=== PATIENT | female | born 1945 | race Caucasian/White ===

== ENCOUNTER 2016-06-25 11:30 | Inpatient (IN) ==
--- NOTE | 2016-06-25 11:34 | Discharge Summary ---
Date of Encounter: 07/01/16 Time of Encounter: 13:49 - Discharge Diagnosis (1) Arthritis of right hip Priority: Primary Status: Acute (2) Hypertension Priority: Secondary Status: Chronic Qualifiers: Hypertension type: unspecified secondary hypertension Qualified Code(s): I15.9 - Secondary hypertension, unspecified; I15 - Secondary hypertension (3) Coronary artery disease Priority: Secondary Status: Chronic Qualifiers: Coronary Disease-Associated Artery/Lesion type: chilkat artery [place] vs. transplanted heart: chilkat heart Associated angina: without angina Qualified Code(s): I25.10 - Atherosclerotic heart disease of chilkat coronary artery without angina pectoris - Discharge Medications Home Medications: Amlodipine [Norvasc] 5 mg PO DAILY 06/25/16 [History] Ascorbate Calcium [Vitamin C] 500 mg PO DAILY 06/25/16 [History] Aspirin Enteric Coated [Aspirin EC] 325 mg PO BID #20 tablet. 06/25/16 [Rx] Bisacodyl [Dulcolax] 5 mg PO DAILY PRN 06/25/16 [History] OxyCODONE Immed Rel [Roxicodone 5 MG] 5 mg PO Q4HR PRN #30 tablet 06/25/16 [Rx] Vitamin E 1,000 unit PO DAILY 06/25/16 [History] hydroCHLOROthiazide [Hydrochlorothiazide] 25 mg PO DAILY 06/25/16 [History] Allergies/Adverse Reactions: Allergies Sulfa (Sulfonamide Antibiotics) Adverse Reaction (Verified 06/25/16 11:54) Hives Primary care physician: Marco Mendoza MD - Patient Status Disposition: Home Health Service Condition: Good Functional capacity at discharge: uses cane/walker Overall status at discharge: patient is progressing back to baseline - Discharge Instructions Follow Up With: Nii Dorman MD [Partnered Physician] - 07/22/16 3:30 pm Mary Kay Zuniga PAC [Physician Airline Lounge Receptionist] - 07/09/16 8:45 am Additional Instructions: Discharge Instructions: Total Hip Replacement Please call [facility] ([phone]), your Primary Care Physician, or report to the Emergency Room if you have any of the following symptoms: Nausea, vomiting, fever greater that 101.5, swelling, chest pain, shortness of breath, increased pain/redness/drainage/odor for your incision site, numbness/ tingling, or any other concerning symptoms. ACTIVITY:Weight-bearing as tolerated for 8 weeks with hip dislocation precautions that physical therapy taught you. You may progress as tolerated under the guidance of your physical therapist. You do not need to sleep with a pillow between your legs. You can also seep on the operative side or on your stomach. MEDICATIONS: Upon discharge resume your home medications. Take all the medications as prescribed. Take a stool softener if taking narcotic pain medications. Stool softeners are only effective if you drink enough fluids. Drink 6-8 glass of water or fluids a day, unless this is not allowed for another health problem. Despite using stool softeners, if you haven't had a bowel movement in 3 days, please switch to a gentle laxative. Gentle laxatives are sold over the counter. You should have a bowel movement within 24 hours, if not call the office. You will be discharged from the hospital with a prescription for pain medication. You are encouraged to decrease the use of narcotic pain medication as tolerated. Should you require a refill, please call the office. [facility] prescribes narcotic pain medication for only 4-6 weeks after surgery. If you require pain medication beyond this time period, you may be referred to your Primary Care Physician or to the Pain Clinic for further evaluation. Plan ahead for refills on pain medication as many narcotics either need to be picked up at the office or mailed. It is best to call 48-72 hours in advance of needing a prescription refill so you don't run out of medication. To help control the post-operative pain, you may take NSAIDs (Aleve,Advil, Motrin, ibuprofen, naprosyn) or Tylenol as prescribed on the bottle in addition to the pain medication. ANTICOAGULATION (blood thinners): Continue your Aspirin, Lovenox or Coumadin as prescribed to help prevent a blood clot in the leg or in the lungs. As long as your incision remains dry and you tolerate the NSAIDs (Aleve, Advil, Motrin, Ibuprofen, Naprosyn), it is OK to use the NSAIDS while you are taking your anticoagulation medication. Should your incision start to drain, stop the NSAID and contact our office. Common symptoms of blood clot in the legs include: localized pain, swelling, calf tenderness, redness or discoloration of the skin. Blood clot in the lung symptoms include: shortness of breath, rapid pulse, sweating, and chest pain that worsens with deep breathing, coughing up blood, lightheadedness, feelings of anxiety. If you experience any of these symptoms notify your physician immediately, go to the emergency room, or if having trouble breathing, call 911. WOUND CARE: Leave the dressing on for 7 to 10days. You may change the dressing if it is saturated greater than 50%. Do not get the dressing wet at anytime. Wash your hands with antibacterial soap, rinse and dry prior to any wound care. If you have razia the visiting nurse or rehab facility can remove the stapes 10-14 days after surgery [address] steri-strips across the wound. Leave the steri-strips in place until they fall off on their own. You may let water from the shower run on top of the steri-strips. If you do not have a visiting nurse or rehab facility, you will need to return to the office at 10-14 days for the razia to be removed. If you have itching or redness around the dressing call the office. FOLLOW-UP: Please follow up with your surgeon in the orthopedic clinic in 6 weeks from the day of surgery. If you have razia that need to be removed, you will need to come back to the office in 10-14 days from the day of surgery. - Hospital Course Hospital course: Ms. Rosas is a 70 year old female The patient had an uneventful postoperative course. They received antibiotics and physical therapy and were discharged in stable condition. There will follow -up in the office in 2 weeks. Aspirin DVT prophylaxis - Time Spent with Patient Total time spent providing and/or coordinating discharge services:
--- NOTE | 2016-06-25 12:00 | History & Physical Report ---
Date of Encounter: 06/25/16 Time of Encounter: 11:59 24 Hour HP Update - Instructions Instructions: If the History and Physical is less than 30 days old and was completed prior to A.M. admission and or procedure and has NOT been updated on calendar day of procedure please complete this update prior to performing procedure. - Update Patient reports changes in Medical Condition: No Changes in examination, assessment, or condition: No Changes in Medication: No Preop tests/diagnostics Reviewed: Yes Surgery Remains Indicated: Yes Consent for Planned Operative Procedure(s) Verified: Yes - Pre-Operative Checklist Preoperative Checklist Indicated: No Prophylactic Antibiotic Ordered: Yes Is VTE Prophylaxis Indicated?: Yes
--- NOTE | 2016-06-25 12:09 | Anesthesia Evaluation PreOp ---
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 06/25/16 [Rx] Aspirin [Ecotrin] 325 mg PO DAILY 06/25/16 [History] Bisacodyl [Dulcolax] 5 mg PO DAILY PRN 06/25/16 [History] Hydrochlorothiazide 25 mg PO DAILY 06/25/16 [History] OxyCODONE Immed Rel [Roxicodone 5 MG] 5 mg PO Q4HR PRN #30 tablet 06/25/16 [Rx] Vitamin E 1,000 unit PO DAILY 06/25/16 [History] Allergies Sulfa (Sulfonamide Antibiotics) Adverse Reaction (Verified 06/25/16 11:54) Hives - Meds/Allergy Pre-op Review Medications Reviewed: Yes Allergies Reviewed: Yes Beta Blockers on Current Med List: No Anesthesia Results - Labs Laboratory Tests 06/04/16 06/04/16 06/04/16 14:56 14:56 14:56 WBC 9.1 Hgb 14.3 Hct 44.9 Plt Count 362 PT 10.8 INR 1.0 APTT 31.9 Sodium 141 Potassium 3.4 L BUN 25 H Creatinine 1.45 H - Imaging EKG: report reviewed (06/04/2016 SR, occasional PVC's, low QRS in precordial leads, poor R wave progression) Anesthesia Exam O2 Sat Height 1.63 m Height 1.63 m Weight 81.647 kg Weight 81.647 kg O2 Sat by Pulse Oximetry 97 Vital Signs Temp Pulse Resp BP Pulse Ox 97.6 F 65 18 147/84 97 06/25/16 11:56 06/25/16 11:56 06/25/16 11:56 06/25/16 11:56 06/25/16 11:56 Height: 5'4'' Weight: 180 lbs NPO (# of Hours): 8 Pain Scale: 2 (hips) Pain Scale Used: Numeric (1 - 10) - HEENT Pupil (Motor): EOMI Mallampati: II Teeth: Normal Oral Opening: Greater than 3 - PROSTHETICS TECHNICIAN LOC: Oriented PROSTHETICS TECHNICIAN Motor: Normal RUE, Normal LUE, Normal RLE, Normal LLE, Normal Face PROSTHETICS TECHNICIAN Sensory: Normal: RUE, LUE, RLE, LLE, Face - Cardiac Rhythm: Regular Murmur: None - Pulmonary Breath Sounds: bilateral Clear Respiratory Effort: Symmetrical Anesthesia Assess/Plan ASA Score: 3 Modified Mehran Scale for Level of Consciousness: Cooperative, oriented, and tranquil Anesthetic Plan: General Monitoring Plan: Standard Monitors Recovery Plan: PACU
[2016-06-25] MEDS ORDERED: *HR* Midazolam HCl 2 MG/2 ML VIAL ONE (12:13)
[2016-06-25] MEDS ORDERED: *HR* FentaNYL (PF) 100 MCG/2 ML VIAL ONE (12:13)
[2016-06-25] MEDS ORDERED: Lidocaine -MPF 2% 2 ML VIAL ONE (12:14)
[2016-06-25] MEDS ORDERED: *HR* Succinylcholine 200 MG/10 ML VIAL IVP ONE (12:15)
[2016-06-25] MEDS ORDERED: *HR* Propofol 200 MG/20 ML VIAL IVP ONE (12:16)
[2016-06-25] MEDS ORDERED: Lidocaine -MPF 4% 5 ML AMPUL ONE (12:17)
[2016-06-25] MEDS ORDERED: CeFAZolin Pre 2,000 MG/100 ML 2,000 MG/100 ML BAG IVPB ONE (12:24)
[2016-06-25] MEDS ORDERED: Ringers Solution, Lactated 1,000 ML IVC SCH ×2 (12:30→15:48)
[2016-06-25] MEDS ORDERED: Ketamine *HR* 500 MG/10 ML MDV ONE (13:02)
[2016-06-25] MEDS ORDERED: Dexamethasone 4 MG/ML VIAL ONE (13:12)
[2016-06-25] MEDS ORDERED: *HR* Magnesium Sulfate 1 GM/2 ML VIAL ONE (13:12)
[2016-06-25] MEDS ORDERED: Ondansetron 4 MG/2 ML VIAL ONE (13:12)
[2016-06-25] MEDS ORDERED: Acetaminophen IV 1,000 MG/100 ML INFUS..BTL ONE (13:17)
--- NOTE | 2016-06-25 13:31 | Anesthesia Procedures ---
Date of Encounter: 06/25/16 Time of Encounter: 14:50 Procedures: Anesthesia - Nerve Block Procedure Date: 06/25/16 Time: 14:50 Allergies/Adv Reactions: sulfa Pre-op Diagnosis: right hip OA Surgical Procedure: right MILDRED Checklist: Correct Patient Identifier, Correct procedure, History checked Correct side: Right Blood Thinner: No Monitor Applied: EKG, BP, Pulse Oximetry Supplemental Oxygen via Nasal Cannula (L/min): 2 Sedation: Versed (mg): 1 Sedation: Fentanyl (mcg): 50 Indication: Post Op Analgesia Pre-op Neuro Deficits: No Block Type: Other (Fascia Iliaca) Catheter placed: No Sterile Technique: Yes Ultrasound used: Yes Anatomy identified: Yes Visual spread of Local: Yes Neuro Stimulation: No Blood on Needle Aspiration: No Smooth Injection of Local: Yes Pain with Injection of Local: No Prep: Chlorhexadine Needle: 21 x 100 mm Stimuplex (echogenic) Local: Other (0.25% bupivacaine) Volume (cc): 60 Number of Attempts: 1 Complications: None/effective block Vitals: Vital Signs/O2 Sat/Glucose, Most Recent Temp Pulse Resp BP Pulse Ox 97.6 F 65 18 175/96 99 06/25/16 11:56 06/25/16 12:55 06/25/16 11:56 06/25/16 12:55 06/25/16 12:55
[2016-06-25] MEDS ORDERED: Ondansetron 4 MG/2 ML VIAL IVP PRN ×2 (13:32→15:48)
[2016-06-25] MEDS ORDERED: *HR* HYDROmorphone 2 MG/ML SYRINGE ONE (13:44)
--- NOTE | 2016-06-25 13:50 | Orthopedic Operative Note ---
Date of procedure: 06/25/16 Pre-op diagnosis: Right hip arthritis Post-op diagnosis: same Procedure: Procedure: Right Total Hip Replacment Estimated blood loss: 300 cc Hardware: Biomet DM Cup: 50 G7 fin cup Femoral size 9 echo full profile lateralized stem Head: +0 head with Greta Procedural Notes: Grade 4 arthritic changes femoral head acetabular socket. Operative procedure: The patient was brought to the operating room and placed on the operating room table. After general anesthesia was administered the patient was placed in the lateral decubitus position with the operative leg up. All pressure points were padded appropriately and the head was stabilized in the neutral position. The operative extremity was prepped and draped in the sterile surgical fashion patient received IV antibiotic prior to skin incision. A standard posterior approach is made to the operative hip, the incision was made through the skin and subcutaneous tissue hemostasis was obtained with Bovie cautery. Using careful sharp dissection the fascia was identified and incised exposing the external rotators. The external rotators were released off the greater trochanter and tagged with #2 FiberWire suture. The capsule was T'd open and the hip was brought into internal rotation. Patient noted to have grade 4 arthritic changes femoral head. The femoral neck cut was made at the appropriate level. An anterior capsulotomy was performed for the anterior retractor. Soft tissues removed from the acetabulum. Patient noted to have grade 4 arthritic changes acetabulum. Acetabulum was first reamed medially, and then reamed in 15 degrees of anteversion and 45 degrees off the horizontal. It was reamed up to the appropriate size 50 The appropriate-sized 50 acetabular cup was impacted in place in 15 degrees of anteversion and 45 degrees off the horizontal. This had good fit and fixation. The hip was brought back in to internal rotation and prepared with the supervisor transferring and boxing followed by the canal finder followed by broaching process in 20 degrees anteversion. It was broached up to the appropriate size 9 The femoral implant was impacted in place in 20 degrees of anteversion. Trial reduction found the hip to be stable with a +0 head and Greta. The trials were removed and the real implants were impacted in place. The hip was reduced, patient had apparent equal leg lengths. The hip had excellent stability with forward flexion to 90 degrees adduction of 30 degrees and internal rotation of 60 degrees. The hip had no shuck. The hips after 2 minutes with a Betadine saline solution. It was irrigated out with 2 L of pulse irrigation. The external rotators were reattached to drill holes in the greater trochanter. Fascia was closed with a running #2 PDS suture. The deep tissue was irrigated and closed deep with #1 PDS suture superficially with 0 PDS suture and skin was closed with skin razia. The patient was placed in a sterile dressing and abduction pillow. The patient was extubated and transferred to the recovery room in stable condition. Anesthesia: KAYLA Surgeon: Nii Dorman Spectacle Truer: Grace Mckeon Condition: stable Disposition: PACU
[2016-06-25] MEDS ORDERED: Ketorolac 30 MG/ML VIAL ONE (13:56)
[2016-06-25] MEDS: *HR* HYDROmorphone (PF) 1 MG/ML SYRINGE IVP PRN ×3 (14:55→15:20)
[2016-06-25 15:04] LABS: Hematocrit 40.4 % (35.3-44.9); Hemoglobin 13.1 g/dL (11.5-15.4)
[2016-06-25] MEDS ORDERED: Sennosides 8.6 MG TABLET PO PRN (15:48)
[2016-06-25] MEDS ORDERED: Temazepam 15 MG CAPSULE PO PRN (15:48)
[2016-06-25] MEDS ORDERED: Naloxone 0.4 MG/ML INJ IVP PRN (15:48)
[2016-06-25] MEDS ORDERED: *HR* OxyCODONE Immed Rel 5 MG TABLET PO PRN (15:48)
[2016-06-25] MEDS ORDERED: *HR* HYDROmorphone (PF) 1 MG/ML SYRINGE IVP PRN (15:48)
[2016-06-25] MEDS ORDERED: Ascorbic Acid 500 MG TABLET PO SCH (17:00)
[2016-06-25] MEDS: *HR* Enoxaparin 30 MG/0.3 ML SYRINGE SQ SCH (17:36)
[2016-06-25] MEDS ORDERED: *HR* Enoxaparin 30 MG/0.3 ML SYRINGE SQ SCH (18:00)
[2016-06-25] MEDS: *HR* OxyCODONE Immed Rel 5 MG TABLET PO PRN (18:42)
[2016-06-25] MEDS ORDERED: ceFAZolin 2,000 MG in D5% in Water 100 ML IVPB SCH (20:00)
[2016-06-26] MEDS ORDERED: ceFAZolin 2,000 MG in D5% in Water 100 ML IVPB SCH (04:00)
[2016-06-26 04:09] LABS: Hematocrit 35.5 % (35.3-44.9); Hemoglobin 11.9 g/dL (11.5-15.4)
[2016-06-26 04:31] LABS: Calcium 8.7 mg/dL (8.6-10.8); Potassium 3.6 mEq/L (3.5-4.5)
[2016-06-26] MEDS: *HR* Enoxaparin 30 MG/0.3 ML SYRINGE SQ SCH ×2 (06:28→17:50)
--- NOTE | 2016-06-26 06:42 | Orthopedics Progress Note ---
Date of Encounter: 06/26/16 Time of Encounter: 06:41 - Assessment and Plan (1) Arthritis of right hip Current Visit: Yes Status: Acute (2) Hypertension Current Visit: Yes Status: Chronic Qualifiers: Hypertension type: unspecified secondary hypertension Qualified Code(s): I15.9 - Secondary hypertension, unspecified; I15 - Secondary hypertension (3) Coronary artery disease Current Visit: Yes Status: Chronic Qualifiers: Coronary Disease-Associated Artery/Lesion type: [place] artery [place] vs. transplanted heart: [place] heart Associated angina: without angina Qualified Code(s): I25.10 - Atherosclerotic heart disease of [place] coronary artery without angina pectoris Subjective Interval history: Patient was seen this morning doing well without complaints. Afebrile vital signs stable. Operative extremity: Concern for right foot drop, sensation intact. will fit with AFO until motor returns. Dressing clean dry and intact Calves nontender Assessment and plan: Continue with postoperative care Hematocrit 38 Objective Vital signs: Vital Signs Temp Pulse Resp BP Pulse Ox 06/26/16 06:32 97.9 F 54 16 115/67 95 06/26/16 04:32 98.0 F 59 16 128/79 95 06/26/16 01:48 98.0 F 68 16 99/65 95 06/25/16 18:45 97.7 F 69 13 115/62 99 06/25/16 17:39 97.6 F 55 10 98/59 99 06/25/16 16:40 98.2 F 85 16 93/60 96 06/25/16 16:28 63 13 95/57 93 06/25/16 16:08 97.6 F 63 13 95/57 93 06/25/16 15:48 97.6 F 56 12 102/64 93 06/25/16 15:25 63 16 101/59 94 06/25/16 15:15 97.5 F L 70 16 114/66 94 06/25/16 15:05 67 16 117/66 93 06/25/16 14:55 65 16 112/67 95 06/25/16 14:45 98.0 F 66 16 116/66 96 06/25/16 14:35 66 16 119/67 96 06/25/16 14:25 72 16 110/75 95 06/25/16 14:15 97.8 F 73 16 106/67 94 06/25/16 12:55 65 175/96 99 05/04/17 11:56 97.6 F 65 18 147/84 97 Intake and Output 06/25/16 06/25/16 06/26/16 15:59 23:59 07:59 Intake Total 100 / 100 Output Total 300 / 300 Balance -200 / -200 Intake: IV Fluids 100 / 100 Ancef Premix 2,000 MG/100 100 / 100 ML 2,000 mg In 100 ml @ 200 mls/hr IVPB PREOP ONE Rx#:[id number] Output: Estimated Blood Loss 300 / 300 Other: # Voids 1 Weight 81.647 kg - Labs CBC & BMP: 06/26/16 03:57 06/26/16 03:57 Labs: Abnormal lab results BUN 21 mg/dL (7-20) H 06/26/16 03:57 Creatinine 1.23 mg/dL (0.57-1.11) H 06/26/16 03:57 Est GFR ( Amer) 52 (> 60) L 06/26/16 03:57 Est GFR (Non-Af Amer) 43 (> 60) L 06/26/16 03:57 Glucose 138 mg/dL (70-99) H 06/26/16 03:57 - VTE Documentation of Mechanical Device: Venous foot pump, device Consult Discharge Plan - Plan Referrals: Marco Mendoza MD [Primary Care Provider] -
[2016-06-26] MEDS: Ascorbic Acid 500 MG TABLET PO SCH (09:04)
[2016-06-26] MEDS: amLODIPine 5 MG TABLET PO SCH (09:04)
[2016-06-26] MEDS: Multivit/Ca/Min/Fe/FA 1 TAB TABLET PO SCH (09:05)
[2016-06-26] MEDS: hydroCHLOROthiazide 25 MG TABLET PO SCH (09:05)
[2016-06-26] MEDS: *HR* OxyCODONE Immed Rel 5 MG TABLET PO PRN ×2 (09:11→20:48)
--- NOTE | 2016-06-26 14:34 | Event Note ---
Date of Encounter: 06/26/16 Time of Encounter: 11:30 AFO brace applied by bracing specialist
[2016-06-27 05:32] LABS: Hematocrit 28.3 % (35.3-44.9)
[2016-06-27 05:44] LABS: Hemoglobin 9.5 g/dL (11.5-15.4)
[2016-06-27 05:45] LABS: Calcium 8.1 mg/dL (8.6-10.8); Potassium 3.2 mEq/L (3.5-4.5)
[2016-06-27] MEDS: *HR* Enoxaparin 30 MG/0.3 ML SYRINGE SQ SCH ×2 (05:46→17:18)
[2016-06-27] MEDS: *HR* OxyCODONE Immed Rel 5 MG TABLET PO PRN ×3 (06:35→20:14)
[2016-06-27] MEDS: MOM Conc 10 ML UD.LIQ PO PRN (06:41)
[2016-06-27] MEDS: Multivit/Ca/Min/Fe/FA 1 TAB TABLET PO SCH (09:30)
[2016-06-27] MEDS: amLODIPine 5 MG TABLET PO SCH (09:30)
[2016-06-27] MEDS: hydroCHLOROthiazide 25 MG TABLET PO SCH (09:30)
[2016-06-27] MEDS: Ascorbic Acid 500 MG TABLET PO SCH (09:31)
--- NOTE | 2016-06-27 10:32 | Orthopedics Progress Note ---
Date of Encounter: 06/27/16 Time of Encounter: 10:30 Subjective Interval history: S: No complaints. Pain well controlled. O: Afeb, VSS Right thigh dressing is clean, dry, intact Calf soft. Flexes ankle and toes; Foot drop. Sensation fully intact. 2+ DP pulse A: Post op right total hip arthroplasty; foot drop. P: Resume post op care AFO to right lower extremity. Objective Vital signs: Vital Signs Temp Pulse Resp BP Pulse Ox 06/27/16 09:28 60 100/65 06/27/16 07:18 98.8 F 64 18 113/68 91 06/27/16 04:02 98.7 F 68 18 120/67 92 06/27/16 00:09 98.6 F 67 16 127/70 93 06/26/16 20:13 97.9 F 62 15 112/58 93 06/26/16 14:47 98.9 F 70 16 130/80 95 06/26/16 11:16 97.9 F 70 16 117/73 95 Intake and Output 06/26/16 06/27/16 06/27/16 23:59 07:59 15:59 Intake Total 0 / 0 360 / 360 Output Total 0 / 0 Balance 0 / 0 360 / 360 Intake: Oral 0 / 0 360 / 360 Output: Urine 0 / 0 Other: Meal Breakfast Percent of Meal Consumed 75% # Voids 1 1 - Labs CBC & BMP: 06/27/16 04:43 06/27/16 04:43 Labs: Abnormal lab results Hgb 9.5 g/dL (11.5-15.4) L D 06/27/16 04:43 Hct 28.3 % (35.3-44.9) L 06/27/16 04:43 Potassium 3.2 mEq/L (3.5-4.5) L 06/27/16 04:43 BUN 24 mg/dL (7-20) H 06/27/16 04:43 Creatinine 1.45 mg/dL (0.57-1.11) H 06/27/16 04:43 Est GFR ( Amer) 43 (> 60) L 06/27/16 04:43 Est GFR (Non-Af Amer) 36 (> 60) L 06/27/16 04:43 Glucose 113 mg/dL (70-99) H 06/27/16 04:43 Calcium 8.1 mg/dL (8.6-10.8) L 06/27/16 04:43 - VTE Documentation of Mechanical Device: Venous foot pump, device Consult Discharge Plan - Plan Referrals: Marco Mendoza MD [Primary Care Provider] -
[2016-06-28] MEDS: *HR* OxyCODONE Immed Rel 5 MG TABLET PO PRN ×3 (03:16→13:52)
[2016-06-28] MEDS: *HR* Enoxaparin 30 MG/0.3 ML SYRINGE SQ SCH (05:39)
[2016-06-28] MEDS: amLODIPine 5 MG TABLET PO SCH (09:13)
[2016-06-28] MEDS: hydroCHLOROthiazide 25 MG TABLET PO SCH (09:13)
[2016-06-28] MEDS: Ascorbic Acid 500 MG TABLET PO SCH (09:13)
[2016-06-28] MEDS: Multivit/Ca/Min/Fe/FA 1 TAB TABLET PO SCH (09:13)
[2016-06-28] MEDS: MOM Conc 10 ML UD.LIQ PO PRN (10:46)
--- NOTE | 2016-06-28 10:58 | Orthopedics Progress Note ---
Date of Encounter: 06/28/16 Time of Encounter: 10:57 Subjective Interval history: S: No complaints. Pain well controlled. O: Afeb, VSS Right thigh dressing is clean, dry, intact Calf soft. Flexes ankle and toes; Foot drop. Sensation fully intact. 2+ DP pulse A: Post op right total hip arthroplasty; foot drop. P: Resume post op care AFO to right lower extremity. Objective Vital signs: Vital Signs Temp Pulse Resp BP Pulse Ox 06/28/16 07:57 99.1 F 82 18 118/76 93 06/28/16 03:18 98.7 F 77 18 132/87 92 06/28/16 00:01 98.8 F 87 18 114/70 91 06/27/16 21:23 98.2 F 81 16 115/69 99 06/27/16 15:48 99.3 F 67 20 131/69 99 06/27/16 12:20 98.3 F 67 18 109/69 96 Intake and Output 06/27/16 06/28/16 06/28/16 23:59 07:59 15:59 Intake Total 450 / 450 625 / 625 Output Total 650 / 650 300 / 300 Balance -200 / -200 325 / 325 Intake: Oral 450 / 450 625 / 625 Output: Urine 650 / 650 300 / 300 Other: # Voids 1 - Labs CBC & BMP: 06/27/16 04:43 06/27/16 04:43 Labs: Abnormal lab results Hgb 9.5 g/dL (11.5-15.4) L D 06/27/16 04:43 Hct 28.3 % (35.3-44.9) L 06/27/16 04:43 Potassium 3.2 mEq/L (3.5-4.5) L 06/27/16 04:43 BUN 24 mg/dL (7-20) H 06/27/16 04:43 Creatinine 1.45 mg/dL (0.57-1.11) H 06/27/16 04:43 Est GFR ( Amer) 43 (> 60) L 06/27/16 04:43 Est GFR (Non-Af Amer) 36 (> 60) L 06/27/16 04:43 Glucose 113 mg/dL (70-99) H 06/27/16 04:43 Calcium 8.1 mg/dL (8.6-10.8) L 06/27/16 04:43 - VTE Documentation of Mechanical Device: Venous foot pump, device Consult Discharge Plan - Plan Additional Instructions: Discharge Instructions: Total Hip Replacement Please call [facility] ([phone]), your Primary Care Physician, or report to the Emergency Room if you have any of the following symptoms: Nausea, vomiting, fever greater that 101.5, swelling, chest pain, shortness of breath, increased pain/redness/drainage/odor for your incision site, numbness/ tingling, or any other concerning symptoms. ACTIVITY:Weight-bearing as tolerated for 8 weeks with hip dislocation precautions that physical therapy taught you. You may progress as tolerated under the guidance of your physical therapist. You do not need to sleep with a pillow between your legs. You can also seep on the operative side or on your stomach. MEDICATIONS: Upon discharge resume your home medications. Take all the medications as prescribed. Take a stool softener if taking narcotic pain medications. Stool softeners are only effective if you drink enough fluids. Drink 6-8 glass of water or fluids a day, unless this is not allowed for another health problem. Despite using stool softeners, if you haven't had a bowel movement in 3 days, please switch to a gentle laxative. Gentle laxatives are sold over the counter. You should have a bowel movement within 24 hours, if not call the office. You will be discharged from the hospital with a prescription for pain medication. You are encouraged to decrease the use of narcotic pain medication as tolerated. Should you require a refill, please call the office. [facility] prescribes narcotic pain medication for only 4-6 weeks after surgery. If you require pain medication beyond this time period, you may be referred to your Primary Care Physician or to the Pain Clinic for further evaluation. Plan ahead for refills on pain medication as many narcotics either need to be picked up at the office or mailed. It is best to call 48-72 hours in advance of needing a prescription refill so you don't run out of medication. To help control the post-operative pain, you may take NSAIDs (Aleve,Advil, Motrin, ibuprofen, naprosyn) or Tylenol as prescribed on the bottle in addition to the pain medication. ANTICOAGULATION (blood thinners): Continue your Aspirin, Lovenox or Coumadin as prescribed to help prevent a blood clot in the leg or in the lungs. As long as your incision remains dry and you tolerate the NSAIDs (Aleve, Advil, Motrin, Ibuprofen, Naprosyn), it is OK to use the NSAIDS while you are taking your anticoagulation medication. Should your incision start to drain, stop the NSAID and contact our office. Common symptoms of blood clot in the legs include: localized pain, swelling, calf tenderness, redness or discoloration of the skin. Blood clot in the lung symptoms include: shortness of breath, rapid pulse, sweating, and chest pain that worsens with deep breathing, coughing up blood, lightheadedness, feelings of anxiety. If you experience any of these symptoms notify your physician immediately, go to the emergency room, or if having trouble breathing, call 911. WOUND CARE: Leave the dressing on for 7 to 10days. You may change the dressing if it is saturated greater than 50%. Do not get the dressing wet at anytime. Wash your hands with antibacterial soap, rinse and dry prior to any wound care. If you have razia the visiting nurse or rehab facility can remove the stapes 10-14 days after surgery and place steri-strips across the wound. Leave the steri-strips in place until they fall off on their own. You may let water from the shower run on top of the steri-strips. If you do not have a visiting nurse or rehab facility, you will need to return to the office at 10-14 days for the razia to be removed. If you have itching or redness around the dressing call the office. FOLLOW-UP: Please follow up with your surgeon in the orthopedic clinic in 6 weeks from the day of surgery. If you have razia that need to be removed, you will need to come back to the office in 10-14 days from the day of surgery. Referrals: Nii Dorman MD [Partnered Physician] - 07/22/16 3:30 pm Mary Kay Zuniga PAC [Physician Tankage Grinder Operator] - 07/09/16 8:45 am
[2016-06-28 11:09] VITALS: BP 113/69
== END 2016-06-28 14:45 | disposition home health service (06) | DRG 470 ==
LOC: SAMDAY 11:30 → EDUNIT# 15:00 → 3NENU 16:10
PROVIDERS: ADMIT Orthopaedic Surgery; ATTEND Orthopaedic Surgery

== ENCOUNTER 2016-08-05 12:28 | Observation (INO) ==
[2016-08-05 12:57] LABS: Basophils % 0.4 %; Eosinophils # 0.2 K/mcL (0.0-0.6); Eosinophils % 2.2 %; Hematocrit 39.1 % (35.3-44.9); Hemoglobin 12.6 g/dL (11.5-15.4); Immature Granulocytes % 0.2 % (0-4); Lymphocytes % 24.8 %; Mean Corpuscular HGB Conc 32.2 g/dL (31.6-35.5); Mean Corpuscular Hemoglobin 31.3 pg (28.0-33.3); Mean Corpuscular Volume 97.3 fL (83.0-100.0); Mean Platelet Volume 8.6 fL (9.4-12.4); Monocytes # 0.5 K/mcL (0.0-1.3); Monocytes % 6.6 %; Neutrophils # 5.3 K/mcL (1.6-8.9); Platelet Count 485 K/mcL (140-400); Red Blood Count 4.02 M/mcL (3.82-4.97); Red Cell Distribution Width 13.4 % (11.5-14.5); Segmented Neutrophils % 65.8 %
--- NOTE | 2016-08-05 13:21 | History & Physical Report ---
Date of Encounter: 08/05/16 Time of Encounter: 13:20 24 Hour HP Update - Instructions Instructions: If the History and Physical is less than 30 days old and was completed prior to A.M. admission and or procedure and has NOT been updated on calendar day of procedure please complete this update prior to performing procedure. - Update Patient reports changes in Medical Condition: No Changes in examination, assessment, or condition: No Changes in Medication: No Preop tests/diagnostics Reviewed: Yes Surgery Remains Indicated: Yes Consent for Planned Operative Procedure(s) Verified: Yes - Pre-Operative Checklist Preoperative Checklist Indicated: No Prophylactic Antibiotic Ordered: Yes Is VTE Prophylaxis Indicated?: NO
--- NOTE | 2016-08-05 13:23 | Discharge Summary ---
Outpatient Proc Discharge Plan - Plan Additional Instructions: Weightbearing as tolerated total hip precautions do not remove dressing Prescriptions: Doxycycline 100 mg PO BID #30 capsule HYDROcodone/Acet 5/325 mg [[place] 5-325 mg] 1 - 2 tab PO Q6H PRN #30 tab PRN Reason: Pain Levofloxacin [Levaquin] 750 mg PO QAM #20 tablet Home Medications: amLODIPine [Norvasc] 5 mg PO DAILY 06/25/16 [History] Doxycycline 100 mg PO BID #30 capsule 08/05/16 [Rx] HYDROcodone/Acet 5/325 mg [[place] 5-325 mg] 1 - 2 tab PO Q6H PRN #30 tab [Rx] Levofloxacin [Levaquin] 750 mg PO QAM #20 tablet 08/05/16 [Rx]
[2016-08-05 13:26] LABS: INR 1.1; Prothrombin Time 11.7 Seconds (9.4-12.1)
[2016-08-05] MEDS ORDERED: *HR* HYDROcodone/Acet 5/325 mg TABLET PO ONE (13:26)
[2016-08-05 13:29] LABS: Activated Partial Thrombo Time 31.3 Seconds (26.0-36.0)
[2016-08-05] MEDS ORDERED: *HR* Propofol 200 MG/20 ML VIAL IVP ONE ×2 (13:33→15:24)
[2016-08-05] MEDS ORDERED: Ringers Solution, Lactated 1,000 ML IVC SCH ×2 (13:45→18:13)
--- NOTE | 2016-08-05 13:47 | Anesthesia Evaluation PreOp ---
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 06/25/16 [Rx] amLODIPine [Norvasc] 5 mg PO DAILY 06/25/16 [History] Doxycycline 100 mg PO BID 08/05/16 [History] Allergies Oxycodone Allergy (Verified 08/05/16 13:22) Hives Sulfa (Sulfonamide Antibiotics) Allergy (Verified 08/05/16 13:22) Hives - Meds/Allergy Pre-op Review Medications Reviewed: Yes Allergies Reviewed: Yes Beta Blockers on Current Med List: No Anesthesia Results - Labs 08/05/16 12:45 - Imaging EKG: report reviewed (sr) Anesthesia Exam O2 Sat Height 1.63 m Height 1.63 m Weight 85.729 kg Weight 85.729 kg O2 Sat by Pulse Oximetry 98 Vital Signs Temp Pulse Resp BP Pulse Ox 99.5 F 82 18 138/89 98 08/05/16 12:46 08/05/16 12:46 08/05/16 12:46 08/05/16 12:46 08/05/16 12:46 Height: 1.63 Weight: 85 NPO (# of Hours): >8 - HEENT Pupil (Motor): Pupils equal, EOMI Mallampati: I Teeth: Normal Oral Opening: Greater than 3 - [employer] LOC: Oriented [employer] Motor: Normal RUE, Normal LUE, Normal RLE, Normal LLE, Normal Face [employer] Sensory: Normal: RUE, LUE, RLE, LLE, Face - Cardiac Rhythm: Regular Murmur: None - Pulmonary Breath Sounds: bilateral Clear Respiratory Effort: Symmetrical Anesthesia Assess/Plan ASA Score: 3 Modified [place] Scale for Level of Consciousness: Cooperative, oriented, and tranquil Anesthetic Plan: General Monitoring Plan: Standard Monitors Recovery Plan: PACU
[2016-08-05] MEDS ORDERED: Vancomycin 1,250 MG in D5% in Water 250 ML IVPB ONE (14:01)
[2016-08-05] MEDS ORDERED: Vancomycin 1,500 MG in D5% in Water 250 ML IVPB ONE (15:00)
[2016-08-05] MEDS ORDERED: *HR* FentaNYL (PF) 100 MCG/2 ML VIAL ONE (15:08)
[2016-08-05] MEDS ORDERED: Ondansetron 4 MG/2 ML VIAL ONE (15:19)
[2016-08-05] MEDS ORDERED: *HR* Succinylcholine 200 MG/10 ML VIAL IVP ONE (15:23)
[2016-08-05] MEDS ORDERED: Ketorolac 30 MG/ML VIAL ONE (15:25)
[2016-08-05] MEDS ORDERED: *HR* HYDROmorphone 2 MG/ML SYRINGE ONE (15:25)
[2016-08-05] MEDS ORDERED: Ondansetron 4 MG/2 ML VIAL IVP PRN ×2 (15:30→18:13)
--- NOTE | 2016-08-05 15:45 | Orthopedic Operative Note ---
Date of procedure: 08/05/16 Pre-op diagnosis: Wound dehiscence right hip Post-op diagnosis: same Procedure: Procedure: Irrigation and debridement right hip exchange of femoral neck and articulating Greta. Estimated blood loss 200 mL: Hardware 40 bearing Greta, 28 standard metal head-Biomet Procedure: Patient brought to the operating placed on the operating table after general anesthesia was administered. Placed left side down right side up lateral decubitus position all pressure points were padded appropriately the hip was stable in neutral position patient 2 small areas of opening where serous fluid was draining out. The right lower extremity was prepped and draped in sterile surgical fashion patient by interlocks was consistent. An elliptical incision was made around the entire incision. The skin subcutaneous tissue hemostasis to him with Bovie cautery. Patient noticed to have what appeared to be fatty necrosis.The patient had extensive debridement of abnormal fatty tissue. Patient had apparent defect in her fascia. This make it all the way down to the joint. Cultures were obtained as well as Gram stain. The hip was dislocated the removable Greta articulating surface and femoral head were removed. The hips have tumors with Betadine saline solution. We then irrigated out pulse irrigation and extensive debridement was performed of the deep tissue was then irrigated out with Bacticsure. The hip then set again for 2 minutes with a Betadine saline solution was was irrigated out with 3 L of pulse irrigation. The real implant was seated and secured 40 bearing surface 28 standard head it was reduced had excellent motion stability. The fascia was closed with a running #1 through #2 PDS suture subcutaneous suture irrigated and closed deep and 1 PDS suture superficially with 0 PDS suture and skin was closed with skin razia. Patient is to be admitted for IV antibiotics overnight reevaluated in the morning she will be placed in observation status. Anesthesia: GETA Surgeon: Nii Dorman Receptionist Nurse: Mary Kay Zuniga Condition: stable Disposition: PACU
[2016-08-05] MEDS: *HR* HYDROmorphone (PF) 1 MG/ML SYRINGE IVP PRN ×4 (16:32→17:28)
[2016-08-05] MEDS ORDERED: Ketorolac 30 MG/ML VIAL IVP ONE (16:56)
[2016-08-05] MEDS ORDERED: Acetaminophen IV 1,000 MG/100 ML INFUS..BTL IVPB ONE (16:57)
--- NOTE | 2016-08-05 17:40 | Anesthesia Evaluation Post Op ---
Date of Encounter: 08/05/16 Time of Encounter: 17:39 - Vital Signs Vital Signs: Vital Signs/O2 Sat/Glucose, Most Current Temp Pulse Resp BP Pulse Ox 08/05/16 17:25 62 20 113/74 96 08/05/16 17:15 97.2 F L 60 20 123/68 93 08/05/16 17:05 61 20 123/72 95 08/05/16 16:55 62 20 124/71 95 08/05/16 16:45 97.9 F 61 20 99/57 95 08/05/16 16:35 73 20 123/72 94 08/05/16 16:25 82 20 121/82 93 08/05/16 16:15 97.4 F L 69 20 92/58 94 - Lungs Lungs: Clear Ascult./Percussion - Airway Airway: Non-obstructed - Cardiovascular Regular Rate - Mental Status Mental Status: Alert & Oriented, Answers Appropriately - Pain Pain Scale: 3 - Nausea Vomiting Nausea Vomiting: Not Present - Hydration Hydration: Ice chips - Discharge PostOp Status: Transfer Patient to floor
[2016-08-05] MEDS ORDERED: *HR* HYDROmorphone (PF) 1 MG/ML SYRINGE IVP PRN (18:13)
[2016-08-05] MEDS ORDERED: MOM Conc 10 ML UD.LIQ PO PRN (18:13)
[2016-08-05] MEDS ORDERED: Naloxone 0.4 MG/ML INJ IVP PRN (18:13)
[2016-08-05] MEDS ORDERED: Sennosides 8.6 MG TABLET PO PRN (18:13)
[2016-08-05] MEDS ORDERED: Temazepam 15 MG CAPSULE PO PRN (18:13)
[2016-08-05] MEDS ORDERED: DAPTOmycin 750 MG in 0.9 % Sodium Chloride 100 ML IVPB SCH (18:13)
[2016-08-05 19:35] LABS: Calcium 8.6 mg/dL (8.6-10.8); Potassium 3.5 mEq/L (3.5-4.5)
[2016-08-05] MEDS: Ascorbic Acid 500 MG TABLET PO SCH (20:10)
[2016-08-05] MEDS: *HR* HYDROcodone/Acet 5/325 mg TABLET PO PRN (20:15)
[2016-08-06] MEDS: *HR* HYDROcodone/Acet 5/325 mg TABLET PO PRN ×4 (00:25→20:03)
[2016-08-06 06:30] LABS: Hematocrit 32.9 % (35.3-44.9)
[2016-08-06 06:31] LABS: Hemoglobin 10.3 g/dL (11.5-15.4)
[2016-08-06 06:47] LABS: Calcium 8.3 mg/dL (8.6-10.8); Potassium 3.7 mEq/L (3.5-4.5)
--- NOTE | 2016-08-06 08:21 | Orthopedics Progress Note ---
Date of Encounter: 08/06/16 Time of Encounter: 08:20 Subjective Interval history: Patient was seen this morning doing well without complaints. Afebrile vital signs stable. Operative extremity: Neurovascularly intact Dressing clean dry and intact Calves nontender Assessment and plan: Continue with postoperative care Gram stain negative patient will be up with physical therapy plan to discharge tomorrow Objective Vital signs: Vital Signs Temp Pulse Resp BP Pulse Ox 08/06/16 07:39 98.1 F 61 16 122/70 96 08/06/16 04:30 97.9 F 64 15 115/69 94 08/06/16 01:11 97.9 F 80 125/80 97 08/06/16 00:52 97.9 F 80 16 125/80 97 08/05/16 22:30 98.0 F 74 17 116/74 95 08/05/16 21:30 73 116/74 95 08/05/16 20:33 97 08/05/16 20:30 57 18 112/69 97 08/05/16 19:30 57 114/73 96 08/05/16 18:30 97.8 F 59 16 102/63 96 08/05/16 18:15 97.6 F 54 18 105/63 95 08/05/16 18:00 97.5 F L 56 18 113/73 96 08/05/16 17:35 97.2 F L 65 20 125/68 92 08/05/16 17:25 62 20 113/74 96 08/05/16 17:15 97.2 F L 60 20 123/68 93 08/05/16 17:05 61 20 123/72 95 08/05/16 16:55 62 20 124/71 95 08/05/16 16:45 97.9 F 61 20 99/57 95 08/05/16 16:35 73 20 123/72 94 08/05/16 16:25 82 20 121/82 93 08/05/16 16:15 97.4 F L 69 20 92/58 94 08/05/16 12:46 99.5 F 82 18 138/89 98 Intake and Output 08/05/16 08/06/16 08/06/16 23:59 07:59 15:59 Intake Total 250 / 250 Balance 250 / 250 Intake: Oral 250 / 250 Other: Weight 85.1 kg Patient Weight 08/06/16 23:59 Weight 85.1 kg - Labs CBC & BMP: 08/06/16 05:26 08/06/16 05:26 Labs: Abnormal lab results Hgb 10.3 g/dL (11.5-15.4) L D 08/06/16 05:26 Hct 32.9 % (35.3-44.9) L 08/06/16 05:26 Plt Count 485 K/mcL (140-400) H 08/05/16 12:45 MPV 8.6 fL (9.4-12.4) L 08/05/16 12:45 ESR 71 mm/hr (0-15) H 08/05/16 12:45 Creatinine 1.12 mg/dL (0.57-1.11) H 08/06/16 05:26 Est GFR ( Amer) 58 (> 60) L 08/06/16 05:26 Est GFR (Non-Af Amer) 48 (> 60) L 08/06/16 05:26 Glucose 100 mg/dL (70-99) H 08/06/16 05:26 Calcium 8.3 mg/dL (8.6-10.8) L 08/06/16 05:26 C-Reactive Protein 12 mg/L (Less than 5) H 08/05/16 12:45 - VTE Documentation of Mechanical Device: Venous foot pump, device Consult Discharge Plan - Plan Additional Instructions: Weightbearing as tolerated total hip precautions do not remove dressing Referrals: Marco Mendoza MD [Primary Care Provider] -
--- NOTE | 2016-08-06 08:22 | Discharge Summary ---
Date of Encounter: 08/07/16 Time of Encounter: 08:33 - Discharge Diagnosis (1) Postoperative wound dehiscence Priority: Primary Status: Acute Qualifiers: Encounter type: subsequent encounter Qualified Code(s): T81.31XD - Disruption of external operation (surgical) wound, not elsewhere classified, subsequent encounter (2) Hypertension Priority: Secondary Status: Chronic Qualifiers: Hypertension type: unspecified secondary hypertension Qualified Code(s): I15.9 - Secondary hypertension, unspecified; I15 - Secondary hypertension (3) Coronary artery disease Priority: Secondary Status: Chronic Qualifiers: Coronary Disease-Associated Artery/Lesion type: [place] artery [place] vs. transplanted heart: [place] heart Associated angina: without angina Qualified Code(s): I25.10 - Atherosclerotic heart disease of [place] coronary artery without angina pectoris - Discharge Medications Home Medications: amLODIPine [Norvasc] 5 mg PO DAILY 06/25/16 [History] Doxycycline 100 mg PO BID #30 capsule 08/05/16 [Rx] HYDROcodone/Acet 5/325 mg [[place] 5-325 mg] 1 - 2 tab PO Q6H PRN #30 tab [Rx] Levofloxacin [Levaquin] 750 mg PO QAM #20 tablet 08/05/16 [Rx] Allergies/Adverse Reactions: Allergies Oxycodone Allergy (Verified 08/05/16 13:22) Hives Sulfa (Sulfonamide Antibiotics) Allergy (Verified 08/05/16 13:22) Hives Labs on day of discharge: Labs from last 24 hours 08/06/16 08/06/16 08/05/16 05:26 05:26 19:10 WBC RBC Hgb 10.3 L D Hct 32.9 L MCV MCH MCHC RDW Plt Count MPV Immature Gran % Seg Neutrophils % Lymphocytes % Monocytes % Eosinophils % Basophils % Neutrophils # Lymphocytes # Monocytes # Eosinophils # Basophils # ESR PT INR APTT Sodium 137 138 Potassium 3.7 3.5 Chloride 102 103 Carbon Dioxide 29 29 BUN 14 11 Creatinine 1.12 H 1.18 H Est GFR ( Amer) 58 L 55 L Est GFR (Non-Af Amer) 48 L 45 L BUN/Creatinine Ratio 13 9 Glucose 100 H 125 H Calculated Osmolality 285 287 Calcium 8.3 L 8.6 C-Reactive Protein 06/14/17 06/14/17 06/14/17 12:45 12:45 12:45 WBC RBC Hgb Hct MCV MCH MCHC RDW Plt Count MPV Immature Gran % Seg Neutrophils % Lymphocytes % Monocytes % Eosinophils % Basophils % Neutrophils # Lymphocytes # Monocytes # Eosinophils # Basophils # ESR 71 H PT 11.7 INR 1.1 APTT 31.3 Sodium Potassium Chloride Carbon Dioxide BUN Creatinine Est GFR ( Amer) Est GFR (Non-Af Amer) BUN/Creatinine Ratio Glucose Calculated Osmolality Calcium C-Reactive Protein 12 H 08/05/16 12:45 WBC 8.1 RBC 4.02 Hgb 12.6 Hct 39.1 MCV 97.3 MCH 31.3 MCHC 32.2 RDW 13.4 Plt Count 485 H MPV 8.6 L Immature Gran % 0.2 Seg Neutrophils % 65.8 Lymphocytes % 24.8 Monocytes % 6.6 Eosinophils % 2.2 Basophils % 0.4 Neutrophils # 5.3 Lymphocytes # 2.0 Monocytes # 0.5 Eosinophils # 0.2 Basophils # 0.0 ESR PT INR APTT Sodium Potassium Chloride Carbon Dioxide BUN Creatinine Est GFR ( Amer) Est GFR (Non-Af Amer) BUN/Creatinine Ratio Glucose Calculated Osmolality Calcium C-Reactive Protein Date of admission: 08/05/16 18:12 Primary care physician: Marco Mendoza MD Consults: 08/05/16 18:13 Consult to Nurse Navigator [CONS] Routine Comment: ortho navigator Consult to Occupational Therapy [CONS] Routine Comment: Evaluate, develop and implement POC Reason for Consult: total hip replacement Consult to Physical Therapy [CONS] Routine Comment: Evaluate, develop and implement POC Reason for Consult: total hip replacement Consult to Trapeze Performer [CONS] Routine Reason for SW Consult: post op joint replacement RT Post Op Consult [CONS] Routine - Patient Status Disposition: Home, Self-Care Condition: Good Functional capacity at discharge: uses cane/walker Overall status at discharge: patient is progressing back to baseline - Discharge Instructions Follow Up With: Marco Mendoza MD [Primary Care Provider] - Additional Instructions: Weightbearing as tolerated total hip precautions do not remove dressing - Hospital Course Hospital course: Ms. Rosas is a 70 year old female The patient had an uneventful postoperative course. They received antibiotics and physical therapy and were discharged in stable condition. There will follow-up in the office in 2 weeks. Gram stain negative cultures negative discharged today - Time Spent with Patient Total time spent providing and/or coordinating discharge services: - VTE Documentation of Mechanical Device: Venous foot pump, device
[2016-08-06] MEDS: Multivit/Ca/Min/Fe/FA 1 TAB TABLET PO SCH (09:04)
[2016-08-06] MEDS: Ascorbic Acid 500 MG TABLET PO SCH ×2 (09:04→16:00)
[2016-08-06] MEDS: amLODIPine 5 MG TABLET PO SCH (09:04)
[2016-08-06] MEDS: Vancomycin 1,250 MG in D5% in Water 250 ML IVPB SCH (16:01)
[2016-08-07 03:54] LABS: Calcium 8.7 mg/dL (8.6-10.8); Hematocrit 33.9 % (35.3-44.9); Hemoglobin 10.6 g/dL (11.5-15.4); Potassium 4.1 mEq/L (3.5-4.5)
--- NOTE | 2016-08-07 08:35 | Orthopedics Progress Note ---
Date of Encounter: 08/07/16 Time of Encounter: 08:34 - Assessment and Plan (1) Postoperative wound dehiscence Current Visit: Yes Status: Acute Qualifiers: Encounter type: subsequent encounter Qualified Code(s): T81.31XD - Disruption of external operation (surgical) wound, not elsewhere classified, subsequent encounter (2) Hypertension Current Visit: No Status: Chronic Qualifiers: Hypertension type: unspecified secondary hypertension Qualified Code(s): I15.9 - Secondary hypertension, unspecified; I15 - Secondary hypertension (3) Coronary artery disease Current Visit: No Status: Chronic Qualifiers: Coronary Disease-Associated Artery/Lesion type: [place] artery [place] vs. transplanted heart: [place] heart Associated angina: without angina Qualified Code(s): I25.10 - Atherosclerotic heart disease of [place] coronary artery without angina pectoris Subjective Interval history: Patient was seen this morning doing well without complaints. Afebrile vital signs stable. Operative extremity: Neurovascularly intact Dressing clean dry and intact Calves nontender Assessment and plan: Continue with postoperative care Gram stain negative cultures is negative discharged today we will pull PICC line before discharge Objective Vital signs: Vital Signs Temp Pulse Resp BP Pulse Ox 08/07/16 06:40 98.7 F 84 16 98/67 96 08/07/16 02:00 97 08/06/16 23:25 99 F 78 20 94/60 97 08/06/16 19:17 99.6 F 85 19 98/61 97 08/06/16 15:54 98.8 F 82 14 106/64 93 08/06/16 11:04 98.1 F 67 16 122/74 91 08/06/16 09:45 91 Intake and Output 08/06/16 08/07/16 08/07/16 23:59 07:59 15:59 Output Total 300 / 300 100 / 100 Balance -300 / -300 -100 / -100 Output: Urine 300 / 300 100 / 100 - Labs CBC & BMP: 08/07/16 03:07 08/07/16 03:07 Labs: Abnormal lab results Hgb 10.6 g/dL (11.5-15.4) L 08/07/16 03:07 Hct 33.9 % (35.3-44.9) L 08/07/16 03:07 Plt Count 485 K/mcL (140-400) H 08/05/16 12:45 MPV 8.6 fL (9.4-12.4) L 08/05/16 12:45 ESR 71 mm/hr (0-15) H 08/05/16 12:45 Creatinine 1.35 mg/dL (0.57-1.11) H 08/07/16 03:07 Est GFR ( Amer) 47 (> 60) L 08/07/16 03:07 Est GFR (Non-Af Amer) 39 (> 60) L 08/07/16 03:07 C-Reactive Protein 12 mg/L (Less than 5) H 08/05/16 12:45 - VTE Documentation of Mechanical Device: Venous foot pump, device Consult Discharge Plan - Plan Additional Instructions: Weightbearing as tolerated total hip precautions do not remove dressing Referrals: Marco Mendoza MD [Primary Care Provider] -
[2016-08-07] MEDS: Multivit/Ca/Min/Fe/FA 1 TAB TABLET PO SCH (09:21)
[2016-08-07] MEDS: Ascorbic Acid 500 MG TABLET PO SCH ×2 (09:21→18:26)
[2016-08-07] MEDS: amLODIPine 5 MG TABLET PO SCH (09:22)
[2016-08-07] MEDS: *HR* HYDROcodone/Acet 5/325 mg TABLET PO PRN ×2 (09:22→15:20)
[2016-08-07] MEDS: Vancomycin 1,250 MG in D5% in Water 250 ML IVPB SCH (15:12)
[2016-08-07 16:14] VITALS: BP 118/67
[2016-08-07] MEDS ORDERED: Aminoglycoside Consult 1 EACH MC ONE (19:14)
--- NOTE | 2016-08-10 10:32 | Physician Discharge Referral ---
Home Health/Hosp Referral Info Transfer to: Home Health Attending Provider: - Diagnosis (1) Status post right hip replacement Priority: Primary Status: Acute (2) Postoperative wound dehiscence Priority: Primary Status: Acute (3) Coronary artery disease Priority: Secondary Status: Chronic (4) Hypertension Priority: Secondary Status: Chronic - Respiratory Orders Smoking Cessation: Smoking cessation has been advised. For more information, call the [employer] Tobacco Quit Line at 0-653-ACTA-NOW. - Dressing/Wound Care Site: Right Hip - Opsite dressing. Leave dressing intact until first post-op appt on Wednesday, unless > 50% saturated. If saturated, patient should start BID dressing changes with ABD and tegaderm. Do not get dressing wet. - Diet/Nutrition Diet/Nutrition Orders: Regular - Activity Activity Orders: Up ad brian, Ambulate - Services Needed Following services are medically necessary services: Nursing, Physical Therapy, Occupational Therapy Other Treatments: Received IV Vancomycin in the hospital x 3 days. Discharged with Doxycycline and Levofloxacin x 10 days. - Transfer Medications Home Medications: amLODIPine [Norvasc] 5 mg PO DAILY 06/25/16 [History] Doxycycline 100 mg PO BID #30 capsule 08/05/16 [Rx] HYDROcodone/Acet 5/325 mg [[place] 5-325 mg] 1 - 2 tab PO Q6H PRN #30 tab [Rx] Levofloxacin [Levaquin] 750 mg PO QAM #20 tablet 08/05/16 [Rx] Allergies/Adverse Reactions: Allergies Oxycodone Allergy (Verified 08/05/16 13:22) Hives Sulfa (Sulfonamide Antibiotics) Allergy (Verified 08/05/16 13:22) Hives Certification: Further, I certify that my clinical findings support that this patient is homebound (i.e. absences from home require considerable and taxing effort and are for medical reasons or congregation services or infrequently or short duration when for other reasons) because: Homebound Reason: Patient requires assistance of a person or device to safely leave home, Post-surgery restriction and or conditions limit ability to leave home Attestation: My signature below is to certify that this patient is under my care and that I, or nurse practitioner, or a physician's fire assistant working with me, has a face-to -face encounter with this patient.
== END 2016-08-07 19:15 | disposition home health service (06) ==
LOC: SAMDAY 12:28 → 3NENU 12:28
PROVIDERS: ADMIT Orthopaedic Surgery; ATTEND Orthopaedic Surgery